=== PATIENT | male | born 1945 | race Caucasian/White ===

== ENCOUNTER 2021-01-16 16:48 | Emergency (ER) | payer BC ==
[2021-01-16 17:09] VITALS: BP 138/72; PULSE 90; TEMP 98; BMI 4198.5
[2021-01-16] MEDS ORDERED: LIDOCAINE 1%/EPI 1:100000 (20 ML MULTI DOSE VIAL) INF ONE (17:24)
[2021-01-16] MEDS ORDERED: LIDOCAINE HCL 1%, 10 MG/ML (20ML VIAL) ONE (17:25)
== END 2021-01-16 18:22 | disposition home or self-care (01) ==
LOC: FER 16:48
DX: S81.811A Laceration without foreign body, right lower leg, initial encounter (principal); W26.8XXA Contact with other sharp object(s), not elsewhere classified, initial encounter
CPT/HCPCS: 99282-25